=== PATIENT | female | born 1975 | race Caucasian/White ===

== ENCOUNTER 2020-08-25 20:25 | Emergency (ER) | payer MEDICAID ==
[~2020-08-25] VITALS: Ht 157.5 cm; Wt 90.7 kg
[2020-08-25 20:27] VITALS: BP 108/87
--- NOTE | 2020-08-25 20:28 | NUR ---
BIBA TAKEN TO LOBBY.
--- NOTE | 2020-08-25 22:24 | NUR ---
PT W/C ASSISTED TO BED #4
--- NOTE | 2020-08-25 22:30 | NUR ---
TO BED 4 WITH C/O MOUTH PAIN. "MY TEETH ARE FALLING OUT OF MY HEAD" . PT NOTED TO HAVE SEVERAL MISSING TEETH. UNKNOWN RECREATIONAL DRUG USE. PT IS ANXIOUS WITH SOMEWHAT ANXIOUS WITH JERKING MOVEMENT
--- NOTE | 2020-08-25 23:24 | NUR ---
Dr. Renteria examining patient.
[2020-08-25] MEDS ORDERED: NACL 0.9% 1,000 ML IV ONE (23:50)
[2020-08-25] MEDS ORDERED: KETOROLAC 30 MG/ML VIAL IVP ONE (23:50)
[2020-08-25] MEDS ORDERED: CLINDAMYCIN 600 MG in DEXTROSE 5% 50 ML IV ONE (23:50)
[2020-08-25] MEDS ORDERED: ONDANSETRON 4 MG/2 ML VIAL IVP ONE (23:50)
--- NOTE | 2020-08-26 00:05 | NUR ---
PT WITH POOR VENOUS ACCESS. H/O IV DRUG ABUSE, LAST USED, "1 WEEK AGO"
--- NOTE | 2020-08-26 00:30 | NUR ---
ADDITIONAL IV ATTEMPTS WITHOUT SUCCESS. DR. HUTCHISON AWARE. ORDERS RECEIVED
[2020-08-26 00:31] LABS: BASOPHILS % (AUTO) 0.4 % (0.0-2.0); EOSINOPHILS # (AUTO) 0.1 K/uL (0-0.4); EOSINOPHILS % (AUTO) 0.6 % (0.0-4.0); HEMATOCRIT 29.5 % (36-48); HEMOGLOBIN 9.4 g/dL (12.0-16.0); LYMPHOCYTES # (AUTO) 1.8 K/uL (2.5-16.5); LYMPHOCYTES % (AUTO) 16.9 % (20.5-51.1); MEAN CORPUSCULAR HEMOGLOBIN 25 pg (27-31); MEAN CORPUSCULAR HGB CONC 32 g/dL (33-37); MONOCYTES # (AUTO) 0.4 K/uL (0.8-1.0); MONOCYTES % (AUTO) 3.8 % (1.7-9.3); NEUTROPHILS # (AUTO) 8.2 K/uL (1.8-7.7); NEUTROPHILS % (AUTO) 78.3 % (42.2-75.2); PLATELET COUNT (AUTO) 606 K/uL (140-450); RED BLOOD CELL COUNT(AUTO) 3.73 MIL/uL (4.20-5.40); RED CELL DISTRIBUTION WIDTH 20.6 % (11.6-13.7); WHITE BLOOD COUNT (AUTO) 10.5 K/uL (4.8-10.8)
[2020-08-26] MEDS ORDERED: KETOROLAC 60 MG/2 ML VIAL IM ONE (00:40)
[2020-08-26] MEDS ORDERED: CLINDAMYCIN 600 MG/4 ML VIAL IM ONE (00:40)
[2020-08-26] MEDS ORDERED: ONDANSETRON 4 MG TAB PO ONE (00:40)
[2020-08-26 00:58] LABS: ALBUMIN 2.8 g/dL (3.4-5.0); ANION GAP 12.5 (8-16); ASPARTATE AMINOTRANSFERASE 15 U/L (15-37); CARBON DIOXIDE 28.4 mmol/L (21-32); CHLORIDE 99 mmol/L (98-107); CREATININE 1.2 mg/dL (0.6-1.3); GFR ARICAN-AMERICAN 62 mL/min (>90); GLUCOSE 185 mg/dL (74-106); POTASSIUM 3.9 mmol/L (3.5-5.1); SODIUM SERUM 136 mmol/L (136-145); TOTAL BILIRUBIN 0.4 mg/dL (0.0-1.0); UREA NITROGEN, BLOOD 13 mg/dL (7-18)
--- NOTE | 2020-08-26 02:16 | NUR ---
PT TAKEN TO CT [facility]IA [facility].
--- NOTE | 2020-08-26 02:26 | NUR ---
PT RETURNED FROM CT VIA [facility]
--- NOTE | 2020-08-26 03:00 | NUR ---
REMAINS UNABLE TO PROVID UA
[2020-08-26] MEDS ORDERED: MORPHINE SULFATE 4 MG/ML SYR IM ONE ×2 (04:05→07:00)
--- NOTE | 2020-08-26 04:05 | NUR ---
DR. HUTCHISON SPEAKING WITH RADIOLOGIST. PT TO BE TRANSFERED.
[2020-08-26] MEDS ORDERED: VANCOMYCIN 1,000 MG in DEXTROSE 5% 250 ML IV SCH (04:30)
--- NOTE | 2020-08-26 04:30 | NUR ---
PT CONTINUES TO STICK FINGERS IN MOUTH, THEN GAGS. STATES, "I'M TRYING TO GET A PIECE OF BROKEN TOOTH OUT".IS RESTLESS AND UNCOOPERATIVE
[2020-08-26] MEDS ORDERED: ACET-5629 PO (04:40)
[2020-08-26] MEDS ORDERED: ALPR0.252 PO (04:40)
--- NOTE | 2020-08-26 05:05 | NUR ---
SUNDAY SWAB OBTAINED AND SENT TO LAB
--- NOTE | 2020-08-26 06:47 | NUR ---
DR. HUTCHISON AT BEDSIDE.
--- NOTE | 2020-08-26 07:17 | NUR ---
REPORT AND CONTINUATION OF CARE RECEIVED FROM SANDRO LAO.
--- NOTE | 2020-08-26 07:30 | NUR ---
PT PRESENTS SITTING UP IN BED REQUESTING PAIN MEDICATION AT THIS TIME. 22G IV TO RIGHT HAND HAS BEEN REMOVED. WILL ATTEMPT TO REESTABLISH IV ACCESS. PT PROVIDED WITH WATER AND JUICE PER REQUEST. EQUAL CHEST RISE AND FALL. MANAGER STRATEGIC PARTNERSHIPS IN PLACE. BED LOCKED IN LOWEST POSITION, SIDE RAILS X 1, CALL LIGHT IN REACH. PAIN MEDICATION ORDERS COMPLETED. ALL PT NEEDS MET AT THIS TIME.
--- NOTE | 2020-08-26 07:47 | NUR ---
IV UNSUCCESSFUL AT THIS TIME. DR. ABERNATHY AT BEDSIDE ATTEMPTING IV ACCESS WITH US.
--- NOTE | 2020-08-26 07:56 | NUR ---
PT SIGNED PICC LINE CONSENT FORM. FORM PLACED IN PT CLIPBOARD.
[2020-08-26] MEDS ORDERED: LORazepam 2 MG/ML VIAL IVP ONE (08:00)
[2020-08-26] MEDS ORDERED: PIPERACILLIN/TAZOBACTAM 3.375 GM in DEXTROSE 5% 50 ML IV ONE (08:00)
[2020-08-26] MEDS ORDERED: PIPERACILLIN/TAZOBACTAM 3.375 GM VIAL IV ONE (08:01)
--- NOTE | 2020-08-26 08:39 | NUR ---
PT SIGNED PATIENT TRANSFER CONSENT FORM.
[2020-08-26] MEDS ORDERED: VANCOMYCIN 1,000 MG VIAL ONE (08:49)
[2020-08-26] MEDS ORDERED: NACL 0.9% 1,000 ML IV ONE (08:55)
--- NOTE | 2020-08-26 08:55 | NUR ---
Patient to be transferred to [facility]. Is being transferred due to HIGHER LEVEL OF CARE. Receiving facility has accepting physician and available space. ER physician has signed transfer form. Patient or responsible libertarian has agreed to transfer and signed form. Patient belongings inventoried and will be sent with patient. Copy of nursing notes, lab reports, EKG, Physicians Orders and X-rays to be sent with patient. Report called to SANDRO HURT at receiving facility. [facility] ambulance service has been called for transfer. ETA is 0910.
--- NOTE | 2020-08-26 09:05 | NUR ---
Contacted SANDRO Harris via telephone; report given with ETA 0910.
[2020-08-26 09:17] VITALS: BP 122/76
--- NOTE | 2020-08-26 09:17 | NUR ---
[facility] ARRIVED AT BEDSIDE. 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 REPORT GIVEN TO [employer] REPRESENTATIVES.
== END 2020-08-26 09:17 | disposition other institution (70) ==
LOC: MED 20:25
DX: S02.609A Fracture of mandible, unspecified, initial encounter for closed fracture (principal); L03.211 Cellulitis of face; Z20.828 Contact with and (suspected) exposure to other viral communicable diseases; X58.XXXA Exposure to other specified factors, initial encounter; Y93.9 Activity, unspecified; Y92.89 Other specified places as the place of occurrence of the external cause; Y99.8 Other external cause status
CPT/HCPCS: 36415; 70486; 80053; 85025; 87426; 96365; 96367; 96372; 96375; 99285; G0482; J1885; J2060; J2270; J2543; J3370; J3490; J7030; J7060; Q0162